=== PATIENT | female | born 1940 | race Caucasian/White ===

== ENCOUNTER 2017-06-07 20:19 | Inpatient (IN) | payer MEDICARE, OTHER ==
[~2017-06-07] VITALS: Ht 160 cm; Wt 66.5 kg
[2017-06-07 21:12] LABS: MEAN CORPUSCULAR HEMOGLOBIN 30.5 pg (27.0-34.8); MEAN CORPUSCULAR HGB CONC 33.9 g/dL (32.4-35.8); MEAN CORPUSCULAR VOLUME 90.1 fL (80-100); MEAN PLATELET VOLUME 6.1 fL (7.4-10.4); PLATELET COUNT 477 x10^3/uL (130-400); RED BLOOD COUNT 4.83 x10^6/uL (3.82-5.3); RED CELL DISTRIBUTION WIDTH 13.4 % (9.6-15.2)
[2017-06-07] MEDS ORDERED: ONDANSETRON ODT 4 MG ONE (21:18)
[2017-06-07] MEDS ORDERED: KETOROLAC 30 MG/1 ML ONE (21:18)
[2017-06-07 21:21] LABS: ANION GAP 9 mmol/L (5-15); CALCIUM 9.5 mg/dL (8.5-10.1); CHLORIDE 104 mmol/L (98-107); CREATININE 1.12 mg/dL (0.55-1.02)
[2017-06-07] MEDS ORDERED: ONDANSETRON ODT 4 MG PO ONE (21:30)
[2017-06-07] MEDS ORDERED: KETOROLAC 60 MG/2 ML IM ONE (21:30)
[2017-06-07 21:32] LABS: BASOPHILS # (AUTO) 0.06 x10^3/uL (0-0.1); BASOPHILS % (AUTO) 0 % (0-1); EOSINOPHILS # (AUTO) 0.15 x10^3/uL (0-0.4); EOSINOPHILS % (AUTO) 1 % (1-7); LYMPHOCYTES # (AUTO) 4.03 x10^3/uL (1-3.4); LYMPHOCYTES % (AUTO) 22 % (22-44); MD MORPH REVIEW ONLY; MONOCYTES # (AUTO) 1.03 x10^3/uL (0.2-0.8); MONOCYTES % (AUTO) 6 % (2-9); NEUTROPHILS # (AUTO) 13.37 x10^3/uL (1.8-6.8); NEUTROPHILS % (AUTO) 72 % (42-75)
[2017-06-07 21:33] LABS: MICROSCOPIC AUTO
[2017-06-07 21:33] LABS: <PLATELET ESTIMATE> INCREASED; <PLT MORPHOLOGY> NORMAL PLT MORPH; <RBC MORPHOLOGY> NORMAL; TOXIC GRAN 1+
[2017-06-07 21:35] LABS: CULTURE INDICATED? NO
[2017-06-07] MEDS ORDERED: LIDOCAINE-MPF 1%, 2ML ONE (21:42)
[2017-06-07] MEDS ORDERED: BUPIVACAINE/PF 0.5% ONE (21:43)
[2017-06-07] MEDS ORDERED: SODIUM CHLORIDE 0.9% 1,000 ML IV ONE (22:13)
[2017-06-07] MEDS ORDERED: SODIUM CHLORIDE FLUSH 10ML SYR IVF ONE (22:30)
[2017-06-07] MEDS ORDERED: DIAZEPAM 5 MG/ML, 10ML VIAL IVPush ONE (22:30)
[2017-06-07 23:30] VITALS: BP 142/73
[2017-06-07] MEDS ORDERED: ACETAMINOPHEN 325 MG TABLET PO PRN (23:30)
[2017-06-07] MEDS ORDERED: ENALAPRILAT 1.25 MG/ML, 2ML IVPush PRN (23:30)
[2017-06-07] MEDS ORDERED: DOCUSATE 100 MG CAPSULE PO PRN (23:30)
[2017-06-07] MEDS ORDERED: SULFAMETH./TRIMETHOPRIM DS 800MG/160MG TABLET PO ONE (23:30)
[2017-06-07] MEDS: LIDODERM 5% PATCH TD SCH (23:59)
[2017-06-07] MEDS: SODIUM CHLORIDE 0.9% 1,000 ML IV SCH (23:59)
[2017-06-08] VITALS: BP 142/73
[2017-06-08] MEDS: TEMAZEPAM 15 MG CAPSULE PO PRN ×2 (00:51→20:45)
[2017-06-08 01:40] VITALS: BP 136/78
[2017-06-08] MEDS ORDERED: LEVO125T PO (02:07)
[2017-06-08] MEDS: LEVOTHYROXINE 125 MCG TABLET PO SCH (05:40)
[2017-06-08] MEDS ORDERED: CALCIUM CARBONATE 500 MG TAB.CHEW PO ONE (06:00)
[2017-06-08 07:06] VITALS: BP 118/72
[2017-06-08] MEDS: ONDANSETRON ODT 4 MG PO PRN ×3 (09:43→20:46)
[2017-06-08] MEDS: KETOROLAC 30 MG/1 ML IVPush PRN (09:43)
[2017-06-08] MEDS ORDERED: DIAZEPAM 10 MG TABLET PO ONE (10:30)
[2017-06-08] MEDS ORDERED: DIAZEPAM 5 MG TABLET ONE (11:24)
[2017-06-08 12:02] VITALS: BP 130/73
[2017-06-08] MEDS: SODIUM CHLORIDE 0.9% 1,000 ML IV SCH (12:46)
[2017-06-08] MEDS ORDERED: PROMETHAZINE 25 MG/ML, 1ML IM PRN (16:30)
[2017-06-08] MEDS ORDERED: METOCLOPRAMIDE 5 MG/ML, 2ML IVPush PRN (16:30)
[2017-06-08] MEDS ORDERED: methylPREDNISolone SOD SUCC 125 MG/2 ML IVPush ONE (16:30)
[2017-06-08 18:40] VITALS: BP 117/71
[2017-06-08] MEDS: LIDODERM 5% PATCH TD SCH (23:30)
[2017-06-09 01:56] VITALS: BP 106/66
[2017-06-09] MEDS: SODIUM CHLORIDE 0.9% 1,000 ML IV SCH ×2 (05:00→21:12)
[2017-06-09 05:18] LABS: ANION GAP 8 mmol/L (5-15); CALCIUM 8.4 mg/dL (8.5-10.1); CHLORIDE 106 mmol/L (98-107); CREATININE 0.74 mg/dL (0.55-1.02)
[2017-06-09] MEDS: ONDANSETRON ODT 4 MG PO PRN ×4 (05:19→21:11)
[2017-06-09] MEDS: LEVOTHYROXINE 125 MCG TABLET PO SCH (05:19)
[2017-06-09 05:24] LABS: BASOPHILS # (AUTO) 0.02 x10^3/uL (0-0.1); BASOPHILS % (AUTO) 0 % (0-1); EOSINOPHILS % (AUTO) 0 % (1-7); LYMPHOCYTES # (AUTO) 1.67 x10^3/uL (1-3.4); LYMPHOCYTES % (AUTO) 15 % (22-44); MD NO; MEAN CORPUSCULAR HEMOGLOBIN 30.6 pg (27.0-34.8); MEAN CORPUSCULAR HGB CONC 33.5 g/dL (32.4-35.8); MEAN CORPUSCULAR VOLUME 91.3 fL (80-100); MEAN PLATELET VOLUME 6.4 fL (7.4-10.4); MONOCYTES # (AUTO) 0.12 x10^3/uL (0.2-0.8); MONOCYTES % (AUTO) 1 % (2-9); NEUTROPHILS # (AUTO) 9.53 x10^3/uL (1.8-6.8); NEUTROPHILS % (AUTO) 84 % (42-75); PLATELET COUNT 398 x10^3/uL (130-400); RED BLOOD COUNT 4.16 x10^6/uL (3.82-5.3); RED CELL DISTRIBUTION WIDTH 13.9 % (9.6-15.2)
[2017-06-09 07:36] VITALS: BP 104/59
[2017-06-09] MEDS ORDERED: CALCIUM CARBONATE 500 MG TAB.CHEW ONE (09:24)
[2017-06-09] MEDS ORDERED: CALCIUM CARBONATE 500 MG TAB.CHEW PO PRN (09:30)
[2017-06-09 12:46] VITALS: BP 107/68
[2017-06-09] MEDS ORDERED: methylPREDNISolone 4mg DOSE PACK PO SCH (14:30)
[2017-06-09] MEDS ORDERED: methylPREDNISolone 4mg DOSE PACK ONE (14:37)
[2017-06-09] MEDS: TEMAZEPAM 15 MG CAPSULE PO PRN (21:11)
[2017-06-09 21:19] VITALS: BP 110/56
[2017-06-09] MEDS: LIDODERM 5% PATCH TD SCH (23:41)
[2017-06-10 02:00] VITALS: BP 106/58
[2017-06-10] MEDS: ONDANSETRON ODT 4 MG PO PRN ×2 (05:43→21:18)
[2017-06-10] MEDS: LEVOTHYROXINE 125 MCG TABLET PO SCH (05:44)
[2017-06-10 08:20] VITALS: BP 123/69
[2017-06-10] MEDS: SODIUM CHLORIDE 0.9% 1,000 ML IV SCH ×2 (08:25→23:56)
[2017-06-10 12:15] VITALS: BP 119/62
[2017-06-10 19:45] VITALS: BP 138/70
[2017-06-10] MEDS: TEMAZEPAM 15 MG CAPSULE PO PRN (21:17)
[2017-06-10] MEDS: LIDODERM 5% PATCH TD SCH (23:56)
[2017-06-11 02:00] VITALS: BP 142/76
[2017-06-11] MEDS: LEVOTHYROXINE 125 MCG TABLET PO SCH (05:03)
[2017-06-11] MEDS: KETOROLAC 30 MG/1 ML IVPush PRN (06:15)
[2017-06-11 07:01] VITALS: BP 149/82
[2017-06-11] MEDS ORDERED: FENTANYL PF 100 MCG/2ML ONE (09:58)
[2017-06-11] MEDS ORDERED: MIDAZOLAM 1 MG/ML, 5ML ONE (09:58)
[2017-06-11] MEDS ORDERED: GADOBUTROL 7.5 MMOL/7.5 ML PFS ONE (11:38)
[2017-06-11 11:58] VITALS: BP 159/72
[2017-06-11 15:26] VITALS: BP 119/72
[2017-06-11 20:00] VITALS: BP 116/67
[2017-06-11] MEDS: TEMAZEPAM 15 MG CAPSULE PO PRN (22:06)
[2017-06-11] MEDS: LIDODERM 5% PATCH TD SCH (23:28)
[2017-06-12] VITALS (8 sets, daily range): BP systolic 109–177; BP diastolic 77–93
[2017-06-12] MEDS: LEVOTHYROXINE 125 MCG TABLET PO SCH (05:48)
[2017-06-12] MEDS ORDERED: METH4TAB2 PO (13:57)
[2017-06-12] MEDS ORDERED: ACET-1600 PO (13:57)
[2017-06-12] MEDS ORDERED: KETO10TA PO (13:57)
[2017-06-12] MEDS ORDERED: DOCU-131 PO (13:57)
[2017-06-12] MEDS ORDERED: TRIAMCINOLONE ACETONIDE 40 MG/ML, 1ML ONE (15:52)
[2017-06-12] MEDS ORDERED: FENTANYL PF 100 MCG/2ML ONE (15:53)
[2017-06-12] MEDS ORDERED: FLUMAZENIL 0.1 MG/1 ML, 5ML ONE (15:53)
[2017-06-12] MEDS ORDERED: NALOXONE 1 MG/ML, 2ML ONE (15:53)
[2017-06-12] MEDS ORDERED: MIDAZOLAM 1 MG/ML, 5ML ONE (15:53)
[2017-06-12] MEDS ORDERED: LIDOCAINE 1%, 20ML ONE (15:54)
[2017-06-12] MEDS ORDERED: DIPHENHYDRAMINE 50 MG/ML, 1ML ONE (16:29)
[2017-06-12] MEDS ORDERED: ONDANSETRON 2MG/ML, 2ML ONE (16:34)
[2017-06-12] MEDS: TEMAZEPAM 15 MG CAPSULE PO PRN (21:08)
[2017-06-12] MEDS: LIDODERM 5% PATCH TD SCH (22:12)
[2017-06-13 01:40] VITALS: BP 129/76
[2017-06-13] MEDS: LEVOTHYROXINE 125 MCG TABLET PO SCH (05:31)
[2017-06-13 06:35] VITALS: BP 117/76
== END 2017-06-13 10:33 | disposition home or self-care (01) | DRG 551 ==
LOC: ED 22:36 → EDIP 22:45 → 4WST 23:15
PROVIDERS: ADMIT Internal Medicine; ATTEND Family Medicine
PROC: 3E0R33Z Introduction of Anti-inflammatory into Spinal Canal, Percutaneous Approach (ICD-10-PCS; principal; 2017-06-12)
PROC: 00HU33Z Insertion of Infusion Device into Spinal Canal, Percutaneous Approach (ICD-10-PCS; 2017-06-12)
DX: M51.16 Intervertebral disc disorders with radiculopathy, lumbar region (principal); N17.0 Acute kidney failure with tubular necrosis; N39.0 Urinary tract infection, site not specified; E03.9 Hypothyroidism, unspecified; F17.200 Nicotine dependence, unspecified, uncomplicated; M19.90 Unspecified osteoarthritis, unspecified site; F40.240 Claustrophobia; M43.16 Spondylolisthesis, lumbar region; M48.061 Spinal stenosis, lumbar region without neurogenic claudication; M77.9 Enthesopathy, unspecified; M51.14 Intervertebral disc disorders with radiculopathy, thoracic region; T38.0X5A Adverse effect of glucocorticoids and synthetic analogues, initial encounter; Z87.440 Personal history of urinary (tract) infections; Z90.710 Acquired absence of both cervix and uterus
CPT/HCPCS: 36415; 62322; 62323; 72157; 72158; 80048; 81001; 83735; 85025; 96372; 96374; 96375; 99156; 99157; A9585; J1885; J2250; J2405; J2550; J3010; J3301; J3360; J3490; J7509; Q0162; J1200; J2310; J2765; J2930; J7030

== ENCOUNTER 2020-01-15 10:10 | Outpatient (CLI) | payer MEDICARE, OTHER ==
[~2020-01-15 10:10] MED LIST: ACET-1600 PO; DOCU-131 PO; KETO10TA PO; LEVO125T PO; METH4TAB2 PO
[2020-01-15] MEDS ORDERED: OMNIPAQUE 350 MG/ML, 75ML BOTTLE ONE (11:09)
== END 2020-01-15 23:59 | disposition home or self-care (01) ==
LOC: CFH 10:10
PROVIDERS: ATTEND Family Medicine
DX: R91.8 Other nonspecific abnormal finding of lung field (principal); J98.11 Atelectasis; R06.2 Wheezing; M54.9 Dorsalgia, unspecified
CPT/HCPCS: 71260; 82565; Q9967

== ENCOUNTER 2020-01-30 06:01 | Day surgery (SDC) | payer MEDICARE, OTHER ==
[~2020-01-30] VITALS: Ht 160 cm; Wt 69.7 kg
[2020-01-30 07:09] VITALS: BP 130/70
[2020-01-30] MEDS ORDERED: FLUMAZENIL 0.1 MG/1 ML, 5ML ONE (08:10)
[2020-01-30] MEDS ORDERED: FENTANYL PF 100 MCG/2ML ONE (08:10)
[2020-01-30] MEDS ORDERED: NALOXONE 1 MG/ML, 2ML ONE (08:10)
[2020-01-30] MEDS ORDERED: MIDAZOLAM 1 MG/ML, 5ML ONE (08:10)
== END 2020-01-30 09:20 | disposition home or self-care (01) ==
LOC: OUT 06:01 → EDSTATUS 08:00 → OUT 09:20
PROVIDERS: ATTEND Family Medicine
DX: J98.59 Other diseases of mediastinum, not elsewhere classified (principal); D49.89 Neoplasm of unspecified behavior of other specified sites; E03.9 Hypothyroidism, unspecified; E78.2 Mixed hyperlipidemia; K21.9 Gastro-esophageal reflux disease without esophagitis; E78.5 Hyperlipidemia, unspecified; F41.9 Anxiety disorder, unspecified; F17.210 Nicotine dependence, cigarettes, uncomplicated; Z79.890 Hormone replacement therapy; Z79.899 Other long term (current) drug therapy; Z90.710 Acquired absence of both cervix and uterus; Z98.890 Other specified postprocedural states; Z83.79 Family history of other diseases of the digestive system
CPT/HCPCS: 32405; 77012; 88305; 99156; 99157; J2250; J3010; J2310